=== PATIENT | female | born 1955 | race Asian ===

== ENCOUNTER 2021-10-17 13:25 | Inpatient (IN) | payer MEDICARE, BC ==
[~2021-10-17] VITALS: Ht 170.2 cm; Wt 104.8 kg
[2021-10-17 13:51] LABS: BASOPHILS % (AUTO) 0.7 % (0.0-2.0); HEMATOCRIT 38.7 % (36-46); HEMOGLOBIN 13.5 g/dL (12.0-16.0); LYMPHOCYTES # (AUTO) 1.2 K/uL (1.0-4.8); LYMPHOCYTES % (AUTO) 24.4 % (22.0-44.0); MEAN CORPUSCULAR HEMOGLOBIN 34.1 pg (26.0-34.0); MEAN CORPUSCULAR HGB CONC 34.9 G/dL (31.0-37.0); MEAN CORPUSCULAR VOLUME 98 fL (80-100); MONOCYTES # (AUTO) 0.5 K/uL (0.1-1.0); MONOCYTES % (AUTO) 9.5 % (2.0-9.0); NEUTROPHILS # (AUTO) 3.1 K/uL (1.8-7.7); NEUTROPHILS % (AUTO) 61.4 % (40.0-70.0); PLATELET COUNT (AUTO) 146 K/uL (150-450); RED BLOOD CELL COUNT(AUTO) 3.95 MIL/uL (4.00-5.20)
[2021-10-17 13:59] LABS: ANION GAP 6 mmol/L (8-16); CALCIUM, TOTAL 8.7 mg/dL (8.8-10.5); CARBON DIOXIDE 30 mmol/L (22-29); CHLORIDE 102 mmol/L (98-107); CREATININE 0.71 mg/dL (0.60-1.30); GLOMERULAR FILTR. RATE CALC > 60 mL/min (>60); GLUCOSE,RANDOM 91 mg/dL (70-110); POTASSIUM 4.4 mmol/L (3.5-5.1); SODIUM SERUM 138 mmol/L (136-145); UREA NITROGEN, BLOOD 19 mg/dL (7-18)
[2021-10-17 14:05] LABS: ALANINE AMINOTRANSFERASE 12 U/L (12-78); ALBUMIN 3.6 g/dL (3.4-5.0); ALKALINE PHOSPHATASE 153 U/L (46-116); ASPARTATE AMINOTRANSFERASE 19 U/L (15-37); BILIRUBIN,TOTAL 0.3 mg/dL (0.1-1.0); TOTAL PROTEIN, SERUM 7.7 g/dL (6.4-8.2)
[2021-10-17 14:11] LABS: COVID AG,FIA SOURCE NASAL SWAB
[2021-10-17 15:01] LABS: APPEARANCE,URINE CLEAR (CLEAR); BILIRUBIN,URINE NEGATIVE (NEGATIVE); GLUCOSE, URINE (UA) NEGATIVE (NEGATIVE); KETONES,URINE NEGATIVE (NEGATIVE); LEUKOCYTE ESTERASE ,URINE NEGATIVE (NEGATIVE); NITRATE,URINE NEGATIVE (NEGATIVE); OCCULT BLOOD,URINE NEGATIVE (NEGATIVE); PROTEIN,URINE NEGATIVE (NEGATIVE); UROBILINOGEN,URINE 0.2 mg/dL (<=1.0)
[2021-10-17 15:06] LABS: AMPHET/METH SCREEN,URINE NEGATIVE (NEGATIVE); BARBITURATE SCREEN, URINE NEGATIVE (NEGATIVE); BENZODIAZEPINES SCREEN,URINE NEGATIVE (NEGATIVE); CANNABINOID SCREEN,URINE NEGATIVE (NEGATIVE); COCAINE SCREEN,URINE NEGATIVE (NEGATIVE); METHADONE SCREEN, URINE NEGATIVE (NEGATIVE); OPIATE SCREEN,URINE NEGATIVE (NEGATIVE)
[2021-10-17 15:27] LABS: PHENCYCLIDINE SCREEN,URINE NEGATIVE (NEGATIVE)
[2021-10-17] MEDS ORDERED: QUEtiapine FUMARATE 100 MG TABLET PO ONE (15:45)
[2021-10-17] MEDS ORDERED: PHEN50 PO (15:50)
[2021-10-17] MEDS ORDERED: CIPR-278 PO (15:50)
[2021-10-17] MEDS ORDERED: SOLI5 PO (15:50)
[2021-10-17] MEDS ORDERED: PALI1.5T7 PO (15:50)
[2021-10-17] MEDS ORDERED: MONT-35 PO (15:50)
[2021-10-17] MEDS ORDERED: VENL-68 PO (15:50)
[2021-10-17] MEDS ORDERED: CARB-98 PO (15:50)
[2021-10-17] MEDS ORDERED: LEVE500T20 PO (15:50)
[2021-10-17] MEDS ORDERED: QUET200T PO (15:50)
[2021-10-17 16:06] LABS: PHENYTOIN (DILANTIN) 10.4 mcg/mL (10.0-20.0)
[2021-10-17] MEDS ORDERED: PHENY100 PO (19:05)
[2021-10-17] MEDS ORDERED: QUEtiapine FUMARATE 300 MG TABLET PO SCH (21:00)
[2021-10-17] MEDS ORDERED: PHENYTOIN SODIUM 100 MG ER CAPSULE PO ONE (23:00)
[2021-10-18] MEDS ORDERED: INFLUENZA VIRUS VACCINE QVS 2021-22 (6MO+)/PF 60 MCG/0.5 ML SYRINGE IM. ONE (10:30)
[2021-10-18] MEDS: QUEtiapine FUMARATE 200 MG TABLET PO SCH (10:43)
[2021-10-18 11:39] VITALS: BP 147/70
[2021-10-18 12:05] LABS: CHOL/HDL RATIO 3.8 (3.9-5.7)
[2021-10-18] MEDS: LevETIRAcetam 500 MG TABLET PO SCH (13:57)
[2021-10-18] MEDS: SOLIFENACIN SUCCINATE 5 MG TABLET PO SCH (13:58)
[2021-10-18] MEDS: MONTELUKAST SODIUM 10 MG TABLET PO SCH (13:58)
[2021-10-18] MEDS: CARBIDOPA/LEVODOPA 25-100 MG TABLET PO SCH ×2 (13:59→17:11)
[2021-10-18 16:06] VITALS: BP 160/79
[2021-10-18] MEDS ORDERED: ONDANSETRON HCL 4 MG TABLET PO PRN (19:00)
[2021-10-18] MEDS ORDERED: CloNIDine HCL 0.1 MG TABLET PO PRN (19:00)
[2021-10-18] MEDS ORDERED: NICOTINE 14 MG/24 HOUR PATCH TD PRN (19:00)
[2021-10-18] MEDS ORDERED: LOPERAMIDE HCL 2 MG CAPSULE PO PRN (19:00)
[2021-10-18] MEDS ORDERED: MAG HYDROX/AL HYDROX/SIMETH ES 30 ML SUSPENSION UDCUP PO PRN (19:00)
[2021-10-18] MEDS ORDERED: MAGNESIUM HYDROXIDE SUSPENSION 30 ML UDCUP PO PRN (19:00)
[2021-10-18] MEDS ORDERED: GuaiFENesin/D-METHORPHAN [SUGAR-FREE] 200-20MG/10 ML SYRUP UDCUP PO PRN (19:00)
[2021-10-18] MEDS ORDERED: PETROLATUM,WHITE 28 GM JELLY TP PRN (19:00)
[2021-10-18] MEDS: PHENYTOIN SODIUM 100 MG ER CAPSULE PO SCH (20:33)
[2021-10-18] MEDS: QUEtiapine FUMARATE 300 MG TABLET PO SCH (20:34)
[2021-10-18] MEDS ORDERED: QUEtiapine FUMARATE 300 MG TABLET PO SCH (21:00)
[2021-10-18 23:45] VITALS: BP 127/80
[2021-10-18] MEDS: ACETAMINOPHEN 325 MG TABLET PO PRN (23:53)
[2021-10-19] MEDS: LevETIRAcetam 500 MG TABLET PO SCH (09:06)
[2021-10-19] MEDS: QUEtiapine FUMARATE 200 MG TABLET PO SCH ×2 (09:06→16:38)
[2021-10-19] MEDS: SOLIFENACIN SUCCINATE 5 MG TABLET PO SCH (09:07)
[2021-10-19] MEDS: MONTELUKAST SODIUM 10 MG TABLET PO SCH (09:07)
[2021-10-19] MEDS: CARBIDOPA/LEVODOPA 25-100 MG TABLET PO SCH ×3 (09:07→16:37)
[2021-10-19] MEDS: ACETAMINOPHEN 325 MG TABLET PO PRN (09:14)
[2021-10-19 16:06] VITALS: BP 131/69
[2021-10-19 16:31] VITALS: BP 131/69
[2021-10-19] MEDS: IBUPROFEN 400 MG TABLET PO PRN (16:31)
[2021-10-19] MEDS: QUEtiapine FUMARATE 300 MG TABLET PO SCH (20:31)
[2021-10-19] MEDS: PHENYTOIN SODIUM 100 MG ER CAPSULE PO SCH (20:31)
[2021-10-19 21:46] VITALS: BP 127/80
[2021-10-19] MEDS: LORazepam 2 MG TABLET PO PRN (21:46)
[2021-10-20 08:12] VITALS: BP 108/72
[2021-10-20] MEDS: SOLIFENACIN SUCCINATE 5 MG TABLET PO SCH (08:23)
[2021-10-20] MEDS: QUEtiapine FUMARATE 200 MG TABLET PO SCH ×2 (08:24→17:19)
[2021-10-20] MEDS: CARBIDOPA/LEVODOPA 25-100 MG TABLET PO SCH ×3 (08:24→17:20)
[2021-10-20] MEDS: LevETIRAcetam 500 MG TABLET PO SCH (08:24)
[2021-10-20] MEDS: MONTELUKAST SODIUM 10 MG TABLET PO SCH (08:24)
[2021-10-20] MEDS: ALBUTEROL SULFATE HFA 90 MCG/PUFF 8 GM INHALER IH PRN ×2 (12:12→18:45)
[2021-10-20 16:03] VITALS: BP 110/56
[2021-10-20 16:42] VITALS: BP 110/54
[2021-10-20] MEDS: LORazepam 2 MG TABLET PO PRN (20:01)
[2021-10-20] MEDS: QUEtiapine FUMARATE 300 MG TABLET PO SCH (20:01)
[2021-10-20] MEDS: PHENYTOIN SODIUM 100 MG ER CAPSULE PO SCH (20:01)
[2021-10-21 08:30] VITALS: BP 105/76
[2021-10-21] MEDS: QUEtiapine FUMARATE 200 MG TABLET PO SCH ×2 (08:38→16:17)
[2021-10-21] MEDS: LevETIRAcetam 500 MG TABLET PO SCH (08:38)
[2021-10-21] MEDS: CARBIDOPA/LEVODOPA 25-100 MG TABLET PO SCH ×3 (08:38→16:17)
[2021-10-21] MEDS: MONTELUKAST SODIUM 10 MG TABLET PO SCH (08:38)
[2021-10-21] MEDS: SOLIFENACIN SUCCINATE 5 MG TABLET PO SCH (08:38)
[2021-10-21] MEDS: ALBUTEROL SULFATE HFA 90 MCG/PUFF 8 GM INHALER IH PRN (09:17)
[2021-10-21 16:03] VITALS: BP 99/69
[2021-10-21] MEDS: PHENYTOIN SODIUM 100 MG ER CAPSULE PO SCH (20:31)
[2021-10-21] MEDS: QUEtiapine FUMARATE 300 MG TABLET PO SCH (20:31)
[2021-10-22 08:04] VITALS: BP 126/70
[2021-10-22] MEDS: MONTELUKAST SODIUM 10 MG TABLET PO SCH (08:58)
[2021-10-22] MEDS: QUEtiapine FUMARATE 200 MG TABLET PO SCH ×2 (08:58→16:18)
[2021-10-22] MEDS: CARBIDOPA/LEVODOPA 25-100 MG TABLET PO SCH ×3 (08:58→16:18)
[2021-10-22] MEDS: SOLIFENACIN SUCCINATE 5 MG TABLET PO SCH (08:58)
[2021-10-22] MEDS: LevETIRAcetam 500 MG TABLET PO SCH (08:58)
[2021-10-22] MEDS: ALBUTEROL SULFATE HFA 90 MCG/PUFF 8 GM INHALER IH PRN ×2 (08:59→19:25)
[2021-10-22 09:20] VITALS: BP 126/70
[2021-10-22] MEDS: IBUPROFEN 400 MG TABLET PO PRN (09:24)
[2021-10-22 12:35] LABS: COVID AG,FIA SOURCE NASOPHARYNGEAL
[2021-10-22 16:16] VITALS: BP 121/69
[2021-10-22] MEDS: PHENYTOIN SODIUM 100 MG ER CAPSULE PO SCH (20:09)
[2021-10-22] MEDS: QUEtiapine FUMARATE 300 MG TABLET PO SCH (20:09)
[2021-10-22] MEDS: ZOLPIDEM TARTRATE 10 MG TABLET PO PRN (22:08)
[2021-10-23 02:00] VITALS: BP 110/69
[2021-10-23] MEDS: ALBUTEROL SULFATE HFA 90 MCG/PUFF 8 GM INHALER IH PRN ×2 (02:23→19:50)
[2021-10-23 09:12] VITALS: BP 110/63
[2021-10-23] MEDS: SOLIFENACIN SUCCINATE 5 MG TABLET PO SCH (09:28)
[2021-10-23] MEDS: MONTELUKAST SODIUM 10 MG TABLET PO SCH (09:28)
[2021-10-23] MEDS: QUEtiapine FUMARATE 200 MG TABLET PO SCH ×2 (09:28→16:57)
[2021-10-23] MEDS: LevETIRAcetam 500 MG TABLET PO SCH (09:28)
[2021-10-23] MEDS: CARBIDOPA/LEVODOPA 25-100 MG TABLET PO SCH ×3 (10:41→17:12)
[2021-10-23 16:02] VITALS: BP 123/77
[2021-10-23] MEDS: QUEtiapine FUMARATE 300 MG TABLET PO SCH (20:24)
[2021-10-23] MEDS: PHENYTOIN SODIUM 100 MG ER CAPSULE PO SCH (20:25)
[2021-10-24 01:09] VITALS: BP 110/78
[2021-10-24] MEDS: ACETAMINOPHEN 325 MG TABLET PO PRN (01:09)
[2021-10-24 08:56] VITALS: BP 112/70
[2021-10-24] MEDS: QUEtiapine FUMARATE 200 MG TABLET PO SCH ×2 (08:57→16:19)
[2021-10-24] MEDS: MONTELUKAST SODIUM 10 MG TABLET PO SCH (08:57)
[2021-10-24] MEDS: LevETIRAcetam 500 MG TABLET PO SCH (08:57)
[2021-10-24] MEDS: ALBUTEROL SULFATE HFA 90 MCG/PUFF 8 GM INHALER IH PRN (08:57)
[2021-10-24] MEDS: CARBIDOPA/LEVODOPA 25-100 MG TABLET PO SCH ×3 (08:57→16:19)
[2021-10-24] MEDS: SOLIFENACIN SUCCINATE 5 MG TABLET PO SCH (08:57)
[2021-10-24] MEDS: IBUPROFEN 400 MG TABLET PO PRN (08:58)
[2021-10-24 12:54] VITALS: BP 112/70
[2021-10-24] MEDS: PHENYTOIN SODIUM 100 MG ER CAPSULE PO SCH (20:50)
[2021-10-24] MEDS: QUEtiapine FUMARATE 300 MG TABLET PO SCH (20:51)
[2021-10-24 22:43] VITALS: BP 112/79
[2021-10-25 08:00] VITALS: BP 130/78
[2021-10-25] MEDS: LevETIRAcetam 500 MG TABLET PO SCH (09:32)
[2021-10-25] MEDS: CARBIDOPA/LEVODOPA 25-100 MG TABLET PO SCH ×3 (09:33→16:18)
[2021-10-25] MEDS: QUEtiapine FUMARATE 200 MG TABLET PO SCH ×2 (09:33→16:18)
[2021-10-25] MEDS: SOLIFENACIN SUCCINATE 5 MG TABLET PO SCH (09:33)
[2021-10-25] MEDS: MONTELUKAST SODIUM 10 MG TABLET PO SCH (09:33)
[2021-10-25 16:35] VITALS: BP 137/82
[2021-10-25] MEDS: QUEtiapine FUMARATE 300 MG TABLET PO SCH (20:18)
[2021-10-25] MEDS: PHENYTOIN SODIUM 100 MG ER CAPSULE PO SCH (20:19)
[2021-10-26] MEDS: CARBIDOPA/LEVODOPA 25-100 MG TABLET PO SCH ×3 (08:39→17:48)
[2021-10-26] MEDS: LevETIRAcetam 500 MG TABLET PO SCH (08:39)
[2021-10-26] MEDS: MONTELUKAST SODIUM 10 MG TABLET PO SCH (08:40)
[2021-10-26] MEDS: QUEtiapine FUMARATE 200 MG TABLET PO SCH ×2 (08:40→17:48)
[2021-10-26] MEDS: SOLIFENACIN SUCCINATE 5 MG TABLET PO SCH (08:40)
[2021-10-26 09:48] VITALS: BP 158/73
[2021-10-26] MEDS: ALBUTEROL SULFATE HFA 90 MCG/PUFF 8 GM INHALER IH PRN (11:51)
[2021-10-26 16:23] VITALS: BP 129/85
[2021-10-26] MEDS: HALOPERIDOL 5 MG TABLET PO PRN (19:00)
[2021-10-26] MEDS: QUEtiapine FUMARATE 300 MG TABLET PO SCH (20:49)
[2021-10-26] MEDS: PHENYTOIN SODIUM 100 MG ER CAPSULE PO SCH (20:50)
[2021-10-27] MEDS: LevETIRAcetam 500 MG TABLET PO SCH (09:18)
[2021-10-27] MEDS: QUEtiapine FUMARATE 200 MG TABLET PO SCH ×2 (09:18→16:50)
[2021-10-27] MEDS: CARBIDOPA/LEVODOPA 25-100 MG TABLET PO SCH ×3 (09:19→16:50)
[2021-10-27] MEDS: MONTELUKAST SODIUM 10 MG TABLET PO SCH (09:19)
[2021-10-27] MEDS: SOLIFENACIN SUCCINATE 5 MG TABLET PO SCH (09:19)
[2021-10-27 10:50] VITALS: BP 139/88
[2021-10-27 16:46] VITALS: BP 140/86
[2021-10-27 18:21] VITALS: BP 138/88
[2021-10-27] MEDS: HALOPERIDOL 5 MG TABLET PO PRN (20:10)
[2021-10-27] MEDS: PHENYTOIN SODIUM 100 MG ER CAPSULE PO SCH (21:31)
[2021-10-27] MEDS: QUEtiapine FUMARATE 300 MG TABLET PO SCH (21:31)
[2021-10-28 08:08] VITALS: BP 120/77
[2021-10-28] MEDS: QUEtiapine FUMARATE 200 MG TABLET PO SCH ×2 (09:42→17:14)
[2021-10-28] MEDS: LevETIRAcetam 500 MG TABLET PO SCH (09:42)
[2021-10-28] MEDS: CARBIDOPA/LEVODOPA 25-100 MG TABLET PO SCH ×3 (09:43→17:13)
[2021-10-28] MEDS: MONTELUKAST SODIUM 10 MG TABLET PO SCH (09:45)
[2021-10-28] MEDS: SOLIFENACIN SUCCINATE 5 MG TABLET PO SCH (09:45)
[2021-10-28 16:02] VITALS: BP 128/92
[2021-10-28] MEDS: PHENYTOIN SODIUM 100 MG ER CAPSULE PO SCH (21:42)
[2021-10-28] MEDS: QUEtiapine FUMARATE 300 MG TABLET PO SCH (21:43)
[2021-10-29 08:10] VITALS: BP 127/83
[2021-10-29] MEDS: QUEtiapine FUMARATE 200 MG TABLET PO SCH ×2 (08:45→16:28)
[2021-10-29] MEDS: CARBIDOPA/LEVODOPA 25-100 MG TABLET PO SCH ×3 (08:46→16:28)
[2021-10-29] MEDS: LevETIRAcetam 500 MG TABLET PO SCH (08:46)
[2021-10-29] MEDS: SOLIFENACIN SUCCINATE 5 MG TABLET PO SCH (08:47)
[2021-10-29] MEDS: MONTELUKAST SODIUM 10 MG TABLET PO SCH (08:47)
[2021-10-29 09:52] VITALS: BP 127/83
[2021-10-29 12:39] LABS: COVID AG,FIA SOURCE NASOPHARYNGEAL
[2021-10-29 16:03] VITALS: BP 104/71
[2021-10-29] MEDS: PHENYTOIN SODIUM 100 MG ER CAPSULE PO SCH (20:18)
[2021-10-29] MEDS: QUEtiapine FUMARATE 300 MG TABLET PO SCH (20:18)
[2021-10-30 03:30] VITALS: BP 104/74
[2021-10-30] MEDS: HALOPERIDOL 5 MG TABLET PO PRN (03:30)
[2021-10-30] MEDS: CARBIDOPA/LEVODOPA 25-100 MG TABLET PO SCH ×3 (08:18→16:18)
[2021-10-30] MEDS: QUEtiapine FUMARATE 200 MG TABLET PO SCH ×2 (08:19→16:18)
[2021-10-30] MEDS: SOLIFENACIN SUCCINATE 5 MG TABLET PO SCH (08:19)
[2021-10-30] MEDS: MONTELUKAST SODIUM 10 MG TABLET PO SCH (08:19)
[2021-10-30] MEDS: LevETIRAcetam 500 MG TABLET PO SCH (08:19)
[2021-10-30 10:17] VITALS: BP 141/76
[2021-10-30 16:07] VITALS: BP 117/70
[2021-10-30] MEDS: QUEtiapine FUMARATE 300 MG TABLET PO SCH (20:35)
[2021-10-30] MEDS: PHENYTOIN SODIUM 100 MG ER CAPSULE PO SCH (20:35)
[2021-10-31] MEDS: SOLIFENACIN SUCCINATE 5 MG TABLET PO SCH (08:44)
[2021-10-31] MEDS: LevETIRAcetam 500 MG TABLET PO SCH (08:44)
[2021-10-31] MEDS: MONTELUKAST SODIUM 10 MG TABLET PO SCH (08:44)
[2021-10-31] MEDS: CARBIDOPA/LEVODOPA 25-100 MG TABLET PO SCH ×3 (08:44→17:19)
[2021-10-31] MEDS: QUEtiapine FUMARATE 200 MG TABLET PO SCH ×2 (08:44→17:19)
[2021-10-31 09:52] VITALS: BP 150/81
[2021-10-31 16:24] VITALS: BP 156/85
[2021-10-31] MEDS: QUEtiapine FUMARATE 300 MG TABLET PO SCH (20:30)
[2021-10-31] MEDS: PHENYTOIN SODIUM 100 MG ER CAPSULE PO SCH (20:30)
[2021-10-31] MEDS: ZOLPIDEM TARTRATE 10 MG TABLET PO PRN (20:45)
[2021-11-01] MEDS: LORazepam 2 MG TABLET PO PRN (03:48)
[2021-11-01 03:52] VITALS: BP 107/76
[2021-11-01 08:07] VITALS: BP 133/86
[2021-11-01] MEDS: QUEtiapine FUMARATE 200 MG TABLET PO SCH ×2 (08:54→17:56)
[2021-11-01] MEDS: SOLIFENACIN SUCCINATE 5 MG TABLET PO SCH (08:54)
[2021-11-01] MEDS: CARBIDOPA/LEVODOPA 25-100 MG TABLET PO SCH ×3 (08:54→17:56)
[2021-11-01] MEDS: LevETIRAcetam 500 MG TABLET PO SCH (08:54)
[2021-11-01] MEDS: MONTELUKAST SODIUM 10 MG TABLET PO SCH (08:54)
[2021-11-01 16:00] VITALS: BP 106/67
[2021-11-01] MEDS: QUEtiapine FUMARATE 300 MG TABLET PO SCH (20:45)
[2021-11-01] MEDS: PHENYTOIN SODIUM 100 MG ER CAPSULE PO SCH (20:45)
[2021-11-01] MEDS: ZOLPIDEM TARTRATE 10 MG TABLET PO PRN (20:55)
[2021-11-02 08:00] VITALS: BP 132/80
[2021-11-02 08:46] VITALS: BP 132/80
[2021-11-02] MEDS: SOLIFENACIN SUCCINATE 5 MG TABLET PO SCH (08:57)
[2021-11-02] MEDS: QUEtiapine FUMARATE 200 MG TABLET PO SCH ×2 (08:57→17:51)
[2021-11-02] MEDS: LevETIRAcetam 500 MG TABLET PO SCH (08:57)
[2021-11-02] MEDS: MONTELUKAST SODIUM 10 MG TABLET PO SCH (08:58)
[2021-11-02] MEDS: CARBIDOPA/LEVODOPA 25-100 MG TABLET PO SCH ×3 (08:58→17:51)
[2021-11-02] MEDS: DOCUSATE SODIUM 100 MG CAPSULE PO PRN (17:52)
[2021-11-02 18:30] VITALS: BP 112/72
[2021-11-02] MEDS: QUEtiapine FUMARATE 300 MG TABLET PO SCH (20:59)
[2021-11-02] MEDS: PHENYTOIN SODIUM 100 MG ER CAPSULE PO SCH (20:59)
[2021-11-02] MEDS: HALOPERIDOL 5 MG TABLET PO PRN (20:59)
[2021-11-03] MEDS: LevETIRAcetam 500 MG TABLET PO SCH (08:26)
[2021-11-03] MEDS: SOLIFENACIN SUCCINATE 5 MG TABLET PO SCH (08:26)
[2021-11-03] MEDS: QUEtiapine FUMARATE 200 MG TABLET PO SCH ×2 (08:26→16:28)
[2021-11-03] MEDS: MONTELUKAST SODIUM 10 MG TABLET PO SCH (08:27)
[2021-11-03] MEDS: CARBIDOPA/LEVODOPA 25-100 MG TABLET PO SCH ×3 (08:27→16:28)
[2021-11-03 11:32] VITALS: BP 132/86
[2021-11-03 16:08] VITALS: BP 128/78
[2021-11-03] MEDS: DOCUSATE SODIUM 100 MG CAPSULE PO PRN (17:51)
[2021-11-03] MEDS: PHENYTOIN SODIUM 100 MG ER CAPSULE PO SCH (20:11)
[2021-11-03] MEDS: QUEtiapine FUMARATE 300 MG TABLET PO SCH (20:12)
[2021-11-04] MEDS: LORazepam 2 MG TABLET PO PRN (03:33)
[2021-11-04 08:00] VITALS: BP 110/72
[2021-11-04] MEDS: CARBIDOPA/LEVODOPA 25-100 MG TABLET PO SCH ×3 (08:58→17:46)
[2021-11-04] MEDS: MONTELUKAST SODIUM 10 MG TABLET PO SCH (08:58)
[2021-11-04] MEDS: SOLIFENACIN SUCCINATE 5 MG TABLET PO SCH (08:58)
[2021-11-04] MEDS: QUEtiapine FUMARATE 200 MG TABLET PO SCH ×2 (08:58→17:46)
[2021-11-04] MEDS: LevETIRAcetam 500 MG TABLET PO SCH (08:59)
[2021-11-04 16:25] VITALS: BP 117/83
[2021-11-04] MEDS: PHENYTOIN SODIUM 100 MG ER CAPSULE PO SCH (20:24)
[2021-11-04] MEDS: QUEtiapine FUMARATE 300 MG TABLET PO SCH (20:24)
[2021-11-05 01:58] VITALS: BP 104/65
[2021-11-05] MEDS: MONTELUKAST SODIUM 10 MG TABLET PO SCH (09:15)
[2021-11-05] MEDS: SOLIFENACIN SUCCINATE 5 MG TABLET PO SCH (09:16)
[2021-11-05] MEDS: LevETIRAcetam 500 MG TABLET PO SCH (09:16)
[2021-11-05] MEDS: CARBIDOPA/LEVODOPA 25-100 MG TABLET PO SCH ×3 (09:16→16:41)
[2021-11-05] MEDS: QUEtiapine FUMARATE 200 MG TABLET PO SCH ×2 (09:16→16:41)
[2021-11-05 09:20] VITALS: BP 135/94
[2021-11-05 12:34] LABS: COVID AG,FIA SOURCE NASOPHARYNGEAL
[2021-11-05 19:05] VITALS: BP 114/71
[2021-11-05] MEDS: PHENYTOIN SODIUM 100 MG ER CAPSULE PO SCH (20:24)
[2021-11-05] MEDS: QUEtiapine FUMARATE 300 MG TABLET PO SCH (20:25)
[2021-11-06 08:16] VITALS: BP 118/79
[2021-11-06] MEDS: CARBIDOPA/LEVODOPA 25-100 MG TABLET PO SCH ×3 (09:16→16:09)
[2021-11-06] MEDS: SOLIFENACIN SUCCINATE 5 MG TABLET PO SCH (09:16)
[2021-11-06] MEDS: MONTELUKAST SODIUM 10 MG TABLET PO SCH (09:16)
[2021-11-06] MEDS: LevETIRAcetam 500 MG TABLET PO SCH (09:17)
[2021-11-06] MEDS: QUEtiapine FUMARATE 200 MG TABLET PO SCH ×2 (09:17→16:09)
[2021-11-06] MEDS: QUEtiapine FUMARATE 300 MG TABLET PO SCH (20:18)
[2021-11-06] MEDS: PHENYTOIN SODIUM 100 MG ER CAPSULE PO SCH (20:19)
[2021-11-07 02:20] VITALS: BP 121/81
[2021-11-07] MEDS: ZOLPIDEM TARTRATE 10 MG TABLET PO PRN (02:25)
[2021-11-07] MEDS: HALOPERIDOL 5 MG TABLET PO PRN (05:25)
[2021-11-07 08:06] VITALS: BP 119/70
[2021-11-07] MEDS: LevETIRAcetam 500 MG TABLET PO SCH (09:02)
[2021-11-07] MEDS: SOLIFENACIN SUCCINATE 5 MG TABLET PO SCH (09:02)
[2021-11-07] MEDS: MONTELUKAST SODIUM 10 MG TABLET PO SCH (09:02)
[2021-11-07] MEDS: CARBIDOPA/LEVODOPA 25-100 MG TABLET PO SCH ×3 (09:02→17:12)
[2021-11-07] MEDS: QUEtiapine FUMARATE 200 MG TABLET PO SCH ×2 (09:02→16:49)
[2021-11-07 16:43] VITALS: BP 116/74
[2021-11-07] MEDS: PHENYTOIN SODIUM 100 MG ER CAPSULE PO SCH (20:06)
[2021-11-07] MEDS: QUEtiapine FUMARATE 300 MG TABLET PO SCH (20:06)
[2021-11-08 09:00] VITALS: BP 121/76
[2021-11-08] MEDS: QUEtiapine FUMARATE 200 MG TABLET PO SCH ×2 (09:14→15:56)
[2021-11-08] MEDS: SOLIFENACIN SUCCINATE 5 MG TABLET PO SCH (09:14)
[2021-11-08] MEDS: MONTELUKAST SODIUM 10 MG TABLET PO SCH (09:14)
[2021-11-08] MEDS: LevETIRAcetam 500 MG TABLET PO SCH (09:14)
[2021-11-08] MEDS: CARBIDOPA/LEVODOPA 25-100 MG TABLET PO SCH ×3 (09:15→15:56)
[2021-11-08] MEDS: LORazepam 2 MG TABLET PO PRN (15:52)
[2021-11-08 16:05] VITALS: BP 131/77
[2021-11-08] MEDS: QUEtiapine FUMARATE 300 MG TABLET PO SCH (20:39)
[2021-11-08] MEDS: PHENYTOIN SODIUM 100 MG ER CAPSULE PO SCH (20:39)
[2021-11-08] MEDS: HALOPERIDOL 5 MG TABLET PO PRN (20:40)
[2021-11-09 02:54] VITALS: BP 110/69
[2021-11-09] MEDS: ACETAMINOPHEN 325 MG TABLET PO PRN (02:54)
[2021-11-09 08:30] VITALS: BP 122/69
[2021-11-09] MEDS: SOLIFENACIN SUCCINATE 5 MG TABLET PO SCH (08:58)
[2021-11-09] MEDS: LevETIRAcetam 500 MG TABLET PO SCH (08:58)
[2021-11-09] MEDS: MONTELUKAST SODIUM 10 MG TABLET PO SCH (08:58)
[2021-11-09] MEDS: QUEtiapine FUMARATE 200 MG TABLET PO SCH ×2 (08:58→17:02)
[2021-11-09] MEDS: CARBIDOPA/LEVODOPA 25-100 MG TABLET PO SCH ×3 (08:58→17:02)
[2021-11-09 16:42] VITALS: BP 129/80
[2021-11-09 16:46] VITALS: BP 159/80
[2021-11-09] MEDS: HALOPERIDOL 5 MG TABLET PO PRN (19:45)
[2021-11-09] MEDS: PHENYTOIN SODIUM 100 MG ER CAPSULE PO SCH (20:36)
[2021-11-09] MEDS: QUEtiapine FUMARATE 300 MG TABLET PO SCH (20:37)
[2021-11-10 00:30] VITALS: BP 140/78
[2021-11-10] MEDS: MONTELUKAST SODIUM 10 MG TABLET PO SCH (08:55)
[2021-11-10] MEDS: LevETIRAcetam 500 MG TABLET PO SCH (08:55)
[2021-11-10] MEDS: CARBIDOPA/LEVODOPA 25-100 MG TABLET PO SCH ×3 (08:55→16:14)
[2021-11-10] MEDS: SOLIFENACIN SUCCINATE 5 MG TABLET PO SCH (08:55)
[2021-11-10] MEDS: QUEtiapine FUMARATE 200 MG TABLET PO SCH ×2 (08:55→16:13)
[2021-11-10 10:23] VITALS: BP 116/71
[2021-11-10] MEDS: HALOPERIDOL 5 MG TABLET PO PRN (13:45)
[2021-11-10 16:00] VITALS: BP 130/86
[2021-11-10] MEDS: PHENYTOIN SODIUM 100 MG ER CAPSULE PO SCH (20:11)
[2021-11-10] MEDS: QUEtiapine FUMARATE 300 MG TABLET PO SCH (20:11)
[2021-11-11 01:56] VITALS: BP 140/85
[2021-11-11 08:05] VITALS: BP 146/88
[2021-11-11] MEDS: SOLIFENACIN SUCCINATE 5 MG TABLET PO SCH (09:12)
[2021-11-11] MEDS: CARBIDOPA/LEVODOPA 25-100 MG TABLET PO SCH ×3 (09:12→16:47)
[2021-11-11] MEDS: LevETIRAcetam 500 MG TABLET PO SCH (09:12)
[2021-11-11] MEDS: MONTELUKAST SODIUM 10 MG TABLET PO SCH (09:12)
[2021-11-11] MEDS: QUEtiapine FUMARATE 200 MG TABLET PO SCH ×2 (09:12→16:47)
[2021-11-11 09:46] LABS: BASOPHILS % (AUTO) 0.7 % (0.0-2.0); EOSINOPHILS % (AUTO) 3.7 % (1.0-6.0); HEMATOCRIT 40.8 % (36-46); LYMPHOCYTES % (AUTO) 22.3 % (22.0-44.0); MEAN CORPUSCULAR HEMOGLOBIN 33.8 pg (26.0-34.0); MEAN CORPUSCULAR HGB CONC 34.4 G/dL (31.0-37.0); MEAN CORPUSCULAR VOLUME 98 fL (80-100); MONOCYTES # (AUTO) 0.4 K/uL (0.1-1.0); MONOCYTES % (AUTO) 8.6 % (2.0-9.0); NEUTROPHILS % (AUTO) 64.7 % (40.0-70.0); PLATELET COUNT (AUTO) 172 K/uL (150-450); RED BLOOD CELL COUNT(AUTO) 4.14 MIL/uL (4.00-5.20); RED CELL DISTRIBUTION WIDTH 12.9 % (11.5-14.5)
[2021-11-11 10:20] LABS: ANION GAP 11 mmol/L (8-16); CALCIUM, TOTAL 8.7 mg/dL (8.8-10.5); CARBON DIOXIDE 28 mmol/L (22-29); CHLORIDE 99 mmol/L (98-107); GLOMERULAR FILTR. RATE CALC > 60 mL/min (>60); GLUCOSE,RANDOM 75 mg/dL (70-110); POTASSIUM 3.7 mmol/L (3.5-5.1); SODIUM SERUM 138 mmol/L (136-145); UREA NITROGEN, BLOOD 19 mg/dL (7-18)
[2021-11-11 16:40] VITALS: BP 105/68
[2021-11-11] MEDS: HALOPERIDOL 5 MG TABLET PO PRN (16:47)
[2021-11-11] MEDS: QUEtiapine FUMARATE 300 MG TABLET PO SCH (20:26)
[2021-11-11] MEDS: PHENYTOIN SODIUM 100 MG ER CAPSULE PO SCH (20:26)
[2021-11-12 00:25] VITALS: BP 115/65
[2021-11-12] MEDS: ZOLPIDEM TARTRATE 10 MG TABLET PO PRN (00:33)
[2021-11-12 08:55] LABS: COVID AG,FIA SOURCE NASAL SWAB
[2021-11-12 09:00] VITALS: BP 125/77
[2021-11-12] MEDS: CARBIDOPA/LEVODOPA 25-100 MG TABLET PO SCH ×3 (09:12→16:22)
[2021-11-12] MEDS: QUEtiapine FUMARATE 200 MG TABLET PO SCH ×2 (09:12→16:22)
[2021-11-12] MEDS: LevETIRAcetam 500 MG TABLET PO SCH (09:12)
[2021-11-12] MEDS: MONTELUKAST SODIUM 10 MG TABLET PO SCH (09:12)
[2021-11-12] MEDS: SOLIFENACIN SUCCINATE 5 MG TABLET PO SCH (09:12)
[2021-11-12 16:17] VITALS: BP 131/86
[2021-11-12] MEDS: HALOPERIDOL 5 MG TABLET PO PRN (16:22)
[2021-11-12] MEDS: QUEtiapine FUMARATE 300 MG TABLET PO SCH (20:38)
[2021-11-12] MEDS: PHENYTOIN SODIUM 100 MG ER CAPSULE PO SCH (20:38)
[2021-11-13 00:26] VITALS: BP 116/78
[2021-11-13] MEDS: SOLIFENACIN SUCCINATE 5 MG TABLET PO SCH (08:28)
[2021-11-13] MEDS: QUEtiapine FUMARATE 200 MG TABLET PO SCH ×2 (08:29→17:28)
[2021-11-13] MEDS: LevETIRAcetam 500 MG TABLET PO SCH (08:29)
[2021-11-13] MEDS: CARBIDOPA/LEVODOPA 25-100 MG TABLET PO SCH ×3 (08:29→17:28)
[2021-11-13] MEDS: MONTELUKAST SODIUM 10 MG TABLET PO SCH (08:29)
[2021-11-13 09:35] VITALS: BP 129/96
[2021-11-13 16:16] VITALS: BP 123/61
[2021-11-13] MEDS: PHENYTOIN SODIUM 100 MG ER CAPSULE PO SCH (20:10)
[2021-11-13] MEDS: HALOPERIDOL 5 MG TABLET PO PRN (20:10)
[2021-11-13] MEDS: QUEtiapine FUMARATE 300 MG TABLET PO SCH (20:10)
[2021-11-14 01:37] VITALS: BP 116/72
[2021-11-14] MEDS: LevETIRAcetam 500 MG TABLET PO SCH (08:48)
[2021-11-14] MEDS: CARBIDOPA/LEVODOPA 25-100 MG TABLET PO SCH ×3 (08:48→16:13)
[2021-11-14] MEDS: SOLIFENACIN SUCCINATE 5 MG TABLET PO SCH (08:48)
[2021-11-14] MEDS: QUEtiapine FUMARATE 200 MG TABLET PO SCH ×2 (08:48→16:13)
[2021-11-14] MEDS: MONTELUKAST SODIUM 10 MG TABLET PO SCH (08:48)
[2021-11-14 16:53] VITALS: BP 115/66
[2021-11-14] MEDS: PHENYTOIN SODIUM 100 MG ER CAPSULE PO SCH (20:39)
[2021-11-14] MEDS: QUEtiapine FUMARATE 300 MG TABLET PO SCH (20:40)
[2021-11-14 21:51] VITALS: BP 126/74
[2021-11-14] MEDS: ACETAMINOPHEN 325 MG TABLET PO PRN (21:51)
[2021-11-15] MEDS: SOLIFENACIN SUCCINATE 5 MG TABLET PO SCH (08:04)
[2021-11-15] MEDS: CARBIDOPA/LEVODOPA 25-100 MG TABLET PO SCH ×3 (08:04→17:24)
[2021-11-15] MEDS: LevETIRAcetam 500 MG TABLET PO SCH (08:04)
[2021-11-15] MEDS: QUEtiapine FUMARATE 200 MG TABLET PO SCH ×2 (08:04→17:24)
[2021-11-15] MEDS: MONTELUKAST SODIUM 10 MG TABLET PO SCH (08:04)
[2021-11-15 08:24] VITALS: BP 118/88
[2021-11-15 16:17] VITALS: BP 138/79
[2021-11-15] MEDS: RisperiDONE 1 MG TABLET PO SCH (17:24)
[2021-11-15] MEDS: PHENYTOIN SODIUM 100 MG ER CAPSULE PO SCH (20:42)
[2021-11-15] MEDS: HALOPERIDOL 5 MG TABLET PO PRN (20:42)
[2021-11-15] MEDS: QUEtiapine FUMARATE 300 MG TABLET PO SCH (20:42)
[2021-11-16 08:45] VITALS: BP 106/44
[2021-11-16] MEDS: CARBIDOPA/LEVODOPA 25-100 MG TABLET PO SCH ×3 (09:02→16:12)
[2021-11-16] MEDS: SOLIFENACIN SUCCINATE 5 MG TABLET PO SCH (09:02)
[2021-11-16] MEDS: QUEtiapine FUMARATE 200 MG TABLET PO SCH ×2 (09:02→16:12)
[2021-11-16] MEDS: MONTELUKAST SODIUM 10 MG TABLET PO SCH (09:02)
[2021-11-16] MEDS: RisperiDONE 1 MG TABLET PO SCH ×2 (09:03→16:12)
[2021-11-16] MEDS: LevETIRAcetam 500 MG TABLET PO SCH (09:03)
[2021-11-16 16:22] VITALS: BP 104/74
[2021-11-16] MEDS: QUEtiapine FUMARATE 300 MG TABLET PO SCH (20:30)
[2021-11-16] MEDS: PHENYTOIN SODIUM 100 MG ER CAPSULE PO SCH (20:30)
[2021-11-17 02:09] VITALS: BP 114/78
[2021-11-17 08:01] VITALS: BP 127/61
[2021-11-17] MEDS: QUEtiapine FUMARATE 200 MG TABLET PO SCH ×2 (08:36→17:17)
[2021-11-17] MEDS: LevETIRAcetam 500 MG TABLET PO SCH (08:36)
[2021-11-17] MEDS: CARBIDOPA/LEVODOPA 25-100 MG TABLET PO SCH ×3 (08:37→17:17)
[2021-11-17] MEDS: SOLIFENACIN SUCCINATE 5 MG TABLET PO SCH (08:37)
[2021-11-17] MEDS: MONTELUKAST SODIUM 10 MG TABLET PO SCH (08:37)
[2021-11-17] MEDS: RisperiDONE 1 MG TABLET PO SCH ×2 (08:38→17:18)
[2021-11-17] MEDS: DOCUSATE SODIUM 100 MG CAPSULE PO PRN (14:07)
[2021-11-17 16:52] VITALS: BP 119/56
[2021-11-17 17:27] VITALS: BP 119/56
[2021-11-17] MEDS: HALOPERIDOL 5 MG TABLET PO PRN (19:30)
[2021-11-17] MEDS: QUEtiapine FUMARATE 300 MG TABLET PO SCH (20:57)
[2021-11-17] MEDS: PHENYTOIN SODIUM 100 MG ER CAPSULE PO SCH (20:57)
[2021-11-18 08:21] VITALS: BP 107/78
[2021-11-18] MEDS: QUEtiapine FUMARATE 200 MG TABLET PO SCH ×2 (09:08→16:13)
[2021-11-18] MEDS: RisperiDONE 1 MG TABLET PO SCH ×2 (09:08→16:13)
[2021-11-18] MEDS: MONTELUKAST SODIUM 10 MG TABLET PO SCH (09:08)
[2021-11-18] MEDS: SOLIFENACIN SUCCINATE 5 MG TABLET PO SCH (09:08)
[2021-11-18] MEDS: CARBIDOPA/LEVODOPA 25-100 MG TABLET PO SCH ×3 (09:08→16:13)
[2021-11-18] MEDS: LevETIRAcetam 500 MG TABLET PO SCH (09:09)
[2021-11-18 16:39] VITALS: BP 127/73
[2021-11-18] MEDS: QUEtiapine FUMARATE 300 MG TABLET PO SCH (20:55)
[2021-11-18] MEDS: PHENYTOIN SODIUM 100 MG ER CAPSULE PO SCH (20:55)
[2021-11-19] MEDS: LevETIRAcetam 500 MG TABLET PO SCH (08:02)
[2021-11-19] MEDS: MONTELUKAST SODIUM 10 MG TABLET PO SCH (08:02)
[2021-11-19] MEDS: QUEtiapine FUMARATE 200 MG TABLET PO SCH ×2 (08:02→16:06)
[2021-11-19] MEDS: SOLIFENACIN SUCCINATE 5 MG TABLET PO SCH (08:02)
[2021-11-19] MEDS: CARBIDOPA/LEVODOPA 25-100 MG TABLET PO SCH ×3 (08:02→16:07)
[2021-11-19] MEDS: RisperiDONE 1 MG TABLET PO SCH ×2 (08:03→16:07)
[2021-11-19 09:02] VITALS: BP 119/79
[2021-11-19 09:51] LABS: COVID AG,FIA SOURCE NASOPHARYNGEAL
[2021-11-19 16:00] VITALS: BP 115/76
[2021-11-19] MEDS: QUEtiapine FUMARATE 300 MG TABLET PO SCH (20:29)
[2021-11-19] MEDS: PHENYTOIN SODIUM 100 MG ER CAPSULE PO SCH (20:29)
[2021-11-20] MEDS: QUEtiapine FUMARATE 200 MG TABLET PO SCH ×2 (08:25→17:03)
[2021-11-20] MEDS: RisperiDONE 1 MG TABLET PO SCH ×2 (08:25→17:03)
[2021-11-20] MEDS: SOLIFENACIN SUCCINATE 5 MG TABLET PO SCH (08:26)
[2021-11-20] MEDS: MONTELUKAST SODIUM 10 MG TABLET PO SCH (08:26)
[2021-11-20] MEDS: LevETIRAcetam 500 MG TABLET PO SCH (08:26)
[2021-11-20] MEDS: CARBIDOPA/LEVODOPA 25-100 MG TABLET PO SCH ×3 (08:26→17:03)
[2021-11-20 10:40] VITALS: BP 104/65
[2021-11-20 16:09] VITALS: BP 135/77
[2021-11-20 16:23] VITALS: BP 135/97
[2021-11-20] MEDS: QUEtiapine FUMARATE 300 MG TABLET PO SCH (20:56)
[2021-11-20] MEDS: PHENYTOIN SODIUM 100 MG ER CAPSULE PO SCH (20:56)
[2021-11-21 04:41] VITALS: BP 130/74
[2021-11-21] MEDS: RisperiDONE 1 MG TABLET PO SCH ×2 (08:10→16:08)
[2021-11-21] MEDS: CARBIDOPA/LEVODOPA 25-100 MG TABLET PO SCH ×3 (08:10→16:08)
[2021-11-21] MEDS: QUEtiapine FUMARATE 200 MG TABLET PO SCH ×2 (08:10→16:08)
[2021-11-21] MEDS: SOLIFENACIN SUCCINATE 5 MG TABLET PO SCH (08:10)
[2021-11-21] MEDS: LevETIRAcetam 500 MG TABLET PO SCH (08:10)
[2021-11-21] MEDS: MONTELUKAST SODIUM 10 MG TABLET PO SCH (08:10)
[2021-11-21 10:03] VITALS: BP 121/82
[2021-11-21 10:19] LABS: COVID AG,FIA SOURCE NASOPHARYNGEAL
[2021-11-21 16:32] VITALS: BP 136/77
[2021-11-21] MEDS: QUEtiapine FUMARATE 300 MG TABLET PO SCH (20:13)
[2021-11-21] MEDS: PHENYTOIN SODIUM 100 MG ER CAPSULE PO SCH (20:13)
[2021-11-22] MEDS: DOCUSATE SODIUM 100 MG CAPSULE PO PRN (03:33)
[2021-11-22 05:52] VITALS: BP 151/85
[2021-11-22 08:00] VITALS: BP 98/41
[2021-11-22] MEDS: LevETIRAcetam 500 MG TABLET PO SCH (08:30)
[2021-11-22] MEDS: QUEtiapine FUMARATE 200 MG TABLET PO SCH ×2 (08:30→17:14)
[2021-11-22] MEDS: CARBIDOPA/LEVODOPA 25-100 MG TABLET PO SCH ×3 (08:30→17:14)
[2021-11-22] MEDS: SOLIFENACIN SUCCINATE 5 MG TABLET PO SCH (08:30)
[2021-11-22] MEDS: MONTELUKAST SODIUM 10 MG TABLET PO SCH (08:30)
[2021-11-22] MEDS: RisperiDONE 1 MG TABLET PO SCH ×2 (08:30→17:13)
[2021-11-22 17:53] VITALS: BP 138/87
[2021-11-22] MEDS: QUEtiapine FUMARATE 300 MG TABLET PO SCH (21:02)
[2021-11-22] MEDS: PHENYTOIN SODIUM 100 MG ER CAPSULE PO SCH (21:02)
[2021-11-23 09:09] VITALS: BP 105/60
[2021-11-23] MEDS: SOLIFENACIN SUCCINATE 5 MG TABLET PO SCH (09:27)
[2021-11-23] MEDS: MONTELUKAST SODIUM 10 MG TABLET PO SCH (09:27)
[2021-11-23] MEDS: LevETIRAcetam 500 MG TABLET PO SCH (09:27)
[2021-11-23] MEDS: CARBIDOPA/LEVODOPA 25-100 MG TABLET PO SCH ×3 (09:27→16:57)
[2021-11-23] MEDS: QUEtiapine FUMARATE 200 MG TABLET PO SCH ×2 (09:27→16:57)
[2021-11-23] MEDS: RisperiDONE 1 MG TABLET PO SCH ×2 (09:29→16:58)
[2021-11-23 16:13] VITALS: BP 128/77
[2021-11-23] MEDS: PHENYTOIN SODIUM 100 MG ER CAPSULE PO SCH (20:49)
[2021-11-23] MEDS: QUEtiapine FUMARATE 300 MG TABLET PO SCH (20:49)
[2021-11-24] MEDS: LevETIRAcetam 500 MG TABLET PO SCH (09:00)
[2021-11-24] MEDS: SOLIFENACIN SUCCINATE 5 MG TABLET PO SCH (09:00)
[2021-11-24] MEDS: CARBIDOPA/LEVODOPA 25-100 MG TABLET PO SCH ×3 (09:00→16:14)
[2021-11-24] MEDS: MONTELUKAST SODIUM 10 MG TABLET PO SCH (09:00)
[2021-11-24] MEDS: QUEtiapine FUMARATE 200 MG TABLET PO SCH ×2 (09:00→16:14)
[2021-11-24 09:41] VITALS: BP 138/91
[2021-11-24] MEDS: RisperiDONE 1 MG TABLET PO SCH ×2 (11:00→16:14)
[2021-11-24] MEDS ORDERED: QUET200T PO (13:18)
[2021-11-24] MEDS ORDERED: RISP0.5T39 PO (13:18)
[2021-11-24] MEDS ORDERED: QUET300T2 PO (13:18)
== END 2021-11-24 19:00 | DRG 885 ==
LOC: EMS 13:25 → 3EI 10-18 06:00
PROVIDERS: ADMIT Psychiatry & Neurology Child & Adolescent Psychiatry; ATTEND Psychiatry & Neurology Child & Adolescent Psychiatry
DX: F20.0 Paranoid schizophrenia (principal); E11.9 Type 2 diabetes mellitus without complications; E78.5 Hyperlipidemia, unspecified; F32.A Depression, unspecified; G20 Parkinson's disease; G40.909 Epilepsy, unspecified, not intractable, without status epilepticus; I10 Essential (primary) hypertension; J45.909 Unspecified asthma, uncomplicated; R32 Unspecified urinary incontinence; R45.850 Homicidal ideations; F41.9 Anxiety disorder, unspecified; Z20.822 Contact with and (suspected) exposure to COVID-19; Z59.00 Homelessness unspecified; Z79.899 Other long term (current) drug therapy; Z91.81 History of falling; Z28.21 Immunization not carried out because of patient refusal; Z79.84 Long term (current) use of oral hypoglycemic drugs
CPT/HCPCS: 80048; 80053; 80061; 80185; 81003; 85025; 90686; 93005; 97112; 97116; 97162; 97166; 97530; 97535; 99285; G0480; J3535